=== PATIENT | male | born 1985 | race Caucasian/White ===

== ENCOUNTER 2020-05-07 07:40 | Day surgery (SDC) | payer BC ==
[~2020-05-07 07:40] MED LIST: EPINEPHrine 1 MG/ML SDV SCH; Lactated Ringers 1,000 ML IV SCH; Lidocaine 1%/Sod Bicarbonate in NS 8.4% 1 ML Syringe IDERM PRN; Sodium Chloride 0.9% 10 ML Syringe FLUSH PRN
--- NOTE | 2020-05-07 07:47 | PCM.PREANE ---
Preanesthetic Assessment - Procedure Proposed Procedure: Left knee video arthroplasty with Chrondoplasty of patella - Anesthesia/Transfusion/Family Hx Anesthesia History: Prior Anesthesia Without Reaction Family History of Anesthesia Reaction: No Transfusion History: No Prior Transfusion(s) - Review of Systems General: No Symptoms Pulmonary: No Symptoms Cardiovascular: No Symptoms Gastrointestinal: No Symptoms Neurological: No Symptoms Other: Reports: Diabetes (check this am 164) - Physical Assessment NPO Status Date: 05/06/20 NPO Status Time: 21:45 Height: 1.83 m Weight: 97.3 kg ASA Class: 2 Mental Status: Alert & Oriented x3 Airway Class: Mallampati = 1 Dentition: Reports: Caries Thyro-Mental Finger Breadths: 3 Mouth Opening Finger Breadths: 3 ROM/Head Extension: Full Lungs: Clear to Auscultation, Normal Respiratory Effort Cardiovascular: Regular Rate, Regular Rhythm - Lab Values: Laboratory Last Values MRSA (PCR) Negative 04/03/20 10:39 - Allergies Allergies/Adverse Reactions: Allergies Allergy/AdvReac Type Severity Reaction Status Date / Time No Known Allergies Allergy Verified 05/06/20 12:22 - Blood Blood Available: No Product(s) Available: None - Anesthesia Plan Pre-Op Medication Ordered: None - Acknowledgements Anesthesia Type Planned: General Anesthesia Pt an Appropriate Candidate for the Planned Anesthesia: Yes Alternatives and Risks of Anesthesia Discussed w Pt/Guardian: Yes Pt/Guardian Understands and Agrees with Anesthesia Plan: Yes PreAnesthesia Questionnaire HEENT History: Reports: Impaired Vision, Other (See Below) Other HEENT History: wears glasses Cardiovascular History: Reports: Hypertension Respiratory History: Reports: Other (See Below) Other Respiratory History: snoring Gastrointestinal History: Reports: Other (See Below) Other Gastrointestinal History: dyspepsia Genitourinary History: Reports: None 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 Musculoskeletal History: Reports: Other (See Below) Other Musculoskeletal History: left wrist injury Neurological History: Reports: None Psychiatric History: Reports: Depression Endocrine/Metabolic History: Reports: Diabetes, Type II Hematologic History: Reports: None Immunologic History: Reports: None Oncologic (Cancer) History: Reports: None Dermatologic History: Reports: None - Infectious Disease History Infectious Disease History: Reports: None - Past Surgical History Head Surgeries/Procedures: Reports: None Cardiovascular Surgical History: Reports: None Respiratory Surgical History: Reports: None GI Surgical History: Reports: None Female Surgical History: Reports: None Male Surgical History: Reports: None Endocrine Surgical History: Reports: None Neurological Surgical History: Reports: None Musculoskeletal Surgical History: Reports: Other (See Below) Other Musculoskeletal Surgeries/Procedures:: left wrist surgery Oncologic Surgical History: Reports: None - SUBSTANCE USE Tobacco Use Status *Q: Former Tobacco User Recreational Drug Use History: No - HOME MEDS Home Medications: Home Meds Dulaglutide [Trulicity] 1.5 mg SQ Q7D 05/06/20 [History] FLUoxetine HCl [Prozac] 20 mg PO DAILY 05/06/20 [History] Fish Oil/[place]-3 Fatty Acids [Fish Oil 1,000 MG] 1 gm PO DAILY 05/06/20 [History] Insulin Glargine,Hum.Rec.Anlog [Basaglar Kwikpen U-100] 35 units SQ DAILY 05/06/20 [History] Mv-Mn/Iron/Folic Acid/Herb 190 [Vitamin D3 Complete Caplet] 1 tab PO DAILY 05/06/20 [History] Omeprazole Magnesium [Prilosec Otc] 20 mg PO DAILY 05/06/20 [History] lisinopriL [Lisinopril] 10 mg PO DAILY 05/06/20 [History] metFORMIN [Glucophage] 500 mg PO BID 05/06/20 [History] Acetaminophen/HYDROcodone [[place] 325-5 MG] 1 - 2 tab PO Q6H PRN #20 tablet 05/07/20 [Rx] Aspirin [Aspirin EC] 325 mg PO BID #84 tab 05/07/20 [Rx] - CURRENT (IN HOUSE) MEDS Current Meds: Current Medications Epinephrine HCl (Epinephrine 1 Mg/Ml Sdv) 3 mg .XX ONETIME BRIANNA Stop: 05/07/20 18:00 Lactated Ringer's (Ringers, Lactated) 1,000 mls @ 125 mls/hr IV ASDIRECTED BRIANNA Stop: 05/07/20 23:00 Lidocaine/Sodium Bicarbonate (Lidocaine 1%/Sod Bicarbonate In Ns 8.4% 1 Ml Syringe) 0.25 ml IDERM ONETIME PRN PRN Reason: Prior to IV Start Stop: 05/07/20 18:00 Sodium Chloride (Sodium Chloride 0.9% 10 Ml Syringe) 10 ml FLUSH ASDIRECTED PRN PRN Reason: Keep Vein Open Stop: 05/07/20 18:00
[2020-05-07] MEDS ORDERED: Ondansetron 4 MG/2 ML SDV ONE (07:55)
[2020-05-07] MEDS ORDERED: Midazolam 1 MG/ML 2 ML SDV ONE (07:55)
[2020-05-07] MEDS ORDERED: Propofol 200 MG/20 ML SDV ONE (07:55)
[2020-05-07] MEDS ORDERED: fentaNYL 250 MCG/5 ML SDV ONE (07:55)
[2020-05-07] MEDS ORDERED: ceFAZolin 1 GM Vial ONE (07:56)
[2020-05-07] MEDS ORDERED: Lidocaine 1% 4 ML ONE (07:56)
[2020-05-07] MEDS ORDERED: Bupivacaine 0.25% 10 ML SDV ONE (08:02)
[2020-05-07] MEDS ORDERED: Ketorolac 30 MG/ML SDV ONE (08:46)
[2020-05-07] MEDS ORDERED: Lactated Ringers 1,000 ML ONE (08:47)
[2020-05-07] MEDS ORDERED: HYDROmorphone 0.5 MG/0.5 ML Syringe ONE ×2 (08:59)
[2020-05-07] MEDS ORDERED: fentaNYL 100 MCG/2 ML SDV IVPUSH PRN (09:39)
--- NOTE | 2020-05-07 09:39 | PCM.POSTAN ---
POST ANESTHESIA ASSESSMENT - MENTAL STATUS Mental Status: Alert, Oriented - VITAL SIGNS Vital Signs: Last Vital Signs Temp 36.3 C 05/07/20 07:40 Pulse 71 05/07/20 07:40 Resp 16 05/07/20 07:40 BP 120/82 05/07/20 07:40 Pulse Ox 98 05/07/20 07:40 - RESPIRATORY Respiratory Status: Respiratory Rate WNL, Airway Patent, O2 Saturation Stable - CARDIOVASCULAR CV Status: Pulse Rate WNL, Blood Pressure Stable - GASTROINTESTINAL GI Status: No Symptoms - PAIN Pain Score: 0 - POST OP HYDRATION Hydration Status: Adequate & Stable - OBSERVATIONS Free Text/Narrative:: no anesthesia complications noted
--- NOTE | 2020-05-07 10:54 | PCM48HPAN ---
Post Anesthesia Note - EVALUATION WITHIN 48HRS OF ANESTHETIC Vital Signs in Normal Range: Yes Patient Participated in Evaluation: Yes Respiratory Function Stable: Yes Airway Patent: Yes Cardiovascular Function Stable: Yes Hydration Status Stable: Yes Pain Control Satisfactory: Yes Nausea and Vomiting Control Satisfactory: Yes Mental Status Recovered: Yes Vital Signs: Last Vital Signs Temp 36.3 C 05/07/20 09:47 Pulse 65 05/07/20 10:30 Resp 15 05/07/20 10:30 BP 108/66 05/07/20 10:30 Pulse Ox 93 L 05/07/20 10:30 - COMMENTS/OBSERVATIONS Free Text/Narrative:: no anesthesia complications noted
--- NOTE | 2020-05-18 07:25 | PCM.OPNOTE ---
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
--- NOTE | 2020-05-18 08:09 | OR ---
DATE OF OPERATION: 05/07/2020 SURGEON: Jimmy Franco MD OPERATION PERFORMED: Left knee video arthroscopy, patellar chondroplasty, and partial synovectomy. PREOPERATIVE DIAGNOSIS: Left knee patellar chondromalacia. 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 ANESTHESIA: General LMA with local. ANESTHESIA PROVIDER: Calin Lopez CRNA. PODODERMATOLOGIST: Rupa Ballesteros PA-C. ESTIMATED BLOOD LOSS: 5 mL. COMPLICATIONS: None. CONDITION: Stable. DESCRIPTION OF PROCEDURE: The patient was identified in the preoperative preop holding area. The proper site was marked and identified by the surgeon. The patient was taken back up the operating theater. After adequate anesthesia, the patient's right lower extremity was placed in a well leg shah. The left lower extremity had a nonsterile tourniquet applied. It was then placed in a C-clamp shah. Foot of the bed was then lowered. Left lower extremity was sterilely prepped and draped in the usual sterile fashion. OR time-out was performed. The patient received 2 g IV Ancef. The left lower extremity was exsanguinated. Tourniquet was insufflated to 250 mmHg. A standard anterior lateral portal incision was made. The scope trocar was introduced. The patient actually was noted to have very little patellar chondromalacia, just a small amount on the medial facet on the very far medial side. The patient was noted to have significant synovitis as well as a tight band on the medial side on the suprapatellar region as well as in the medial gutter causing tension on the patella. At this time, attention was turned to the medial compartment. Anteromedial portal was created with the use of a spinal needle. The patient was noted to have no chondromalacia. The medial compartment meniscus was intact. The ACL was found to be significantly laxed with significant redundancy under direct visualization. The lateral compartment showed no signs of meniscal tear, but did show signs indicative of possible old ACL injury with a small amount of chondromalacia on the posterior lateral aspect of the lateral tibial plateau. At this time, attention was turned to the chondromalacia of the patella. A partial chondroplasty of the medial facet of the patella was undertaken at this time. Also a partial synovectomy of the tight band on the medial side was undertaken as well. Excess saline was drained from the knee. 3-0 nylon suture was used for closure skin. The patient was placed in a sterile soft dressing and sent to the PACU in stable condition. MMISRAEL /[id number]
== END 2020-05-07 11:39 | disposition home or self-care (01) ==
LOC: JD.SDS 07:40
PROVIDERS: ATTEND Orthopaedic Surgery
DX: M76.52 Patellar tendinitis, left knee (principal); M22.42 Chondromalacia patellae, left knee; M23.8X2 Other internal derangements of left knee; M65.9 Synovitis and tenosynovitis, unspecified; E11.9 Type 2 diabetes mellitus without complications; I10 Essential (primary) hypertension; Z79.899 Other long term (current) drug therapy; Z79.4 Long term (current) use of insulin; Z98.890 Other specified postprocedural states; Z87.891 Personal history of nicotine dependence
CPT/HCPCS: 29877; 82962; 87641; J0171; J0690; J1170; J1885; J2250; J2405; J2704; J3010; J3490; J7120; 01400

== ENCOUNTER 2020-07-09 06:41 | Day surgery (SDC) | payer BC ==
--- NOTE | 2020-07-08 11:57 | PCM.SN.2 ---
- Free Text/Narrative Note: Left selective femoral nerve block at the adductor canal for post-procedure pain control under US guidance requested by Dr. Franco. Time Out: 724 Start: 724 End: 733 Chart reviewed. Consent signed. Questions answered. Appropriate monitors applied. Time out performed. Left mid-shaft femur identified with ultrasound, scanning medially of femur, the femoral artery in the adductor canal visualized, and the femoral nerve located laterally to the artery. The skin was prepped lateral to the ultrasound probe with chlorahexadine times two. The 21ga 4 insulated block needle was inserted under direct ultrasound guidance into the adductor canal. 20 mL's of 0.5% ropivacaine with 1:200,000 epinephrine was injected circumferentially around the nerve with intermittent negative aspiration noted. Patient tolerated the procedure well. Sterile technique noted along with sterile gloves, mask, and sterile probe cover. See picture on progress note and vital signs on nurses notes. Block completed in PACU. Thank you, Alejandrina Aguilar CRNA
--- NOTE | 2020-07-08 13:35 | PCM.PREANE ---
Preanesthetic Assessment - Procedure Proposed Procedure: Left KVA with ACL Reconstruction with allograft - Anesthesia/Transfusion/Family Hx Anesthesia History: Prior Anesthesia Without Reaction Family History of Anesthesia Reaction: No Transfusion History: No Prior Transfusion(s) Intubation History: Unknown - Review of Systems General: No Symptoms Pulmonary: No Symptoms (Patient snores: denies ALEX) Cardiovascular: No Symptoms (HTN) Gastrointestinal: No Symptoms (GERD-controlled) Neurological: No Symptoms Other: Reports: None, Diabetes (AM blood sugar=), Depression - Physical Assessment NPO Status Date: 07/08/20 NPO Status Time: 20:48 Vital Signs: HR: 74 Sat: 98% Temp: 97.8 B/P: 118/86 Resp: 16 Height: 1.84 m Weight: 100 kg ASA Class: 2 Mental Status: Alert & Oriented x3 Airway Class: Mallampati = 2 Dentition: Reports: Normal Dentition, Caries Thyro-Mental Finger Breadths: 3 Mouth Opening Finger Breadths: 3 ROM/Head Extension: Full Lungs: Clear to Auscultation, Normal Respiratory Effort Cardiovascular: Regular Rate, Regular Rhythm, No Murmurs - Lab Values: All labs reviewed and noted and within acceptable ranges to proceed with scheduled procedure. - Allergies Allergies/Adverse Reactions: Allergies Allergy/AdvReac Type Severity Reaction Status Date / Time No Known Allergies Allergy Verified 05/07/20 08:11 - Anesthesia Plan Pre-Op Medication Ordered: None - Acknowledgements Anesthesia Type Planned: General Anesthesia (With left adductor canal block under US guidance for post operative pain control requested by Dr. Franco.), Spinal Pt an Appropriate Candidate for the Planned Anesthesia: Yes Alternatives and Risks of Anesthesia Discussed w Pt/Guardian: Yes Pt/Guardian Understands and Agrees with Anesthesia Plan: Yes PreAnesthesia Questionnaire HEENT History: Reports: Impaired Vision, Other (See Below) Other HEENT History: wears glasses Cardiovascular History: Reports: Hypertension Respiratory History: Reports: Other (See Below) Other Respiratory History: snoring Gastrointestinal History: Reports: Other (See Below) Other Gastrointestinal History: dyspepsia Genitourinary History: Reports: None INFANT NANNY History: Reports: None Musculoskeletal History: Reports: Other (See Below) Other Musculoskeletal History: left wrist injury Neurological History: Reports: None Psychiatric History: Reports: Depression Endocrine/Metabolic History: Reports: Diabetes, Type II Hematologic History: Reports: None Immunologic History: Reports: None Oncologic (Cancer) History: Reports: None Dermatologic History: Reports: None - Infectious Disease History Infectious Disease History: Reports: None - Past Surgical History Head Surgeries/Procedures: Reports: None Cardiovascular Surgical History: Reports: None Respiratory Surgical History: Reports: None GI Surgical History: Reports: None Female Surgical History: Reports: None Male Surgical History: Reports: None Endocrine Surgical History: Reports: None Neurological Surgical History: Reports: None Musculoskeletal Surgical History: Reports: Other (See Below) Other Musculoskeletal Surgeries/Procedures:: left wrist surgery Oncologic Surgical History: Reports: None - HOME MEDS Home Medications: Home Meds Dulaglutide [Trulicity] 1.5 mg SQ Q7D 05/06/20 [History] FLUoxetine HCl [Prozac] 20 mg PO DAILY 05/06/20 [History] Fish Oil/[place]-3 Fatty Acids [Fish Oil 1,000 MG] 1 gm PO DAILY 05/06/20 [History] Insulin Glargine,Hum.Rec.Anlog [Basaglar Kwikpen U-100] 35 units SQ DAILY 05/06/20 [History] Mv-Mn/Iron/Folic Acid/Herb 190 [Vitamin D3 Complete Caplet] 1 tab PO DAILY 05/06/20 [History] Omeprazole Magnesium [Prilosec Otc] 20 mg PO DAILY 05/06/20 [History] lisinopriL [Lisinopril] 10 mg PO DAILY 05/06/20 [History] metFORMIN [Glucophage] 500 mg PO BID 05/06/20 [History] Aspirin [Aspirin EC] 325 mg PO BID #84 tab 05/07/20 [Rx] Aspirin [Aspirin EC] 325 mg PO BID #84 tab 07/09/20 [Rx] Cyclobenzaprine [Flexeril] 10 mg PO BID PRN #20 tab 07/09/20 [Rx] - CURRENT (IN HOUSE) MEDS Current Meds: Current Medications Lactated Ringer's (Ringers, Lactated) 1,000 mls @ 125 mls/hr IV ASDIRECTED BRIANNA Stop: 07/09/20 23:00 Lidocaine/Sodium Bicarbonate (Lidocaine 1%/Sod Bicarbonate In Ns 8.4% 1 Ml Syringe) 0.25 ml IDERM ONETIME PRN PRN Reason: Prior to IV Start Stop: 07/09/20 18:00 Sodium Chloride (Sodium Chloride 0.9% 10 Ml Syringe) 10 ml FLUSH ASDIRECTED PRN PRN Reason: Keep Vein Open Stop: 07/09/20 18:00
[~2020-07-09 06:41] MED LIST changes: +EPINEPHrine 1 MG/ML SDV ONE; -EPINEPHrine 1 MG/ML SDV SCH; -Lactated Ringers 1,000 ML IV SCH; -Lidocaine 1%/Sod Bicarbonate in NS 8.4% 1 ML Syringe IDERM PRN; +Ropivacaine 0.5% 5 MG/ML 30 ML SDV ONE; -Sodium Chloride 0.9% 10 ML Syringe FLUSH PRN
[2020-07-09] MEDS ORDERED: Sodium Chloride 0.9% 10 ML Syringe FLUSH PRN (07:00)
[2020-07-09] MEDS ORDERED: Lactated Ringers 1,000 ML IV SCH (07:00)
[2020-07-09] MEDS ORDERED: Lidocaine 1%/Sod Bicarbonate in NS 8.4% 1 ML Syringe IDERM PRN (07:00)
[2020-07-09] MEDS ORDERED: EPINEPHrine 1 MG/ML 30 ML MDV IRR SCH (07:00)
[2020-07-09] MEDS ORDERED: Propofol 200 MG/20 ML SDV ONE (08:18)
[2020-07-09] MEDS ORDERED: Lidocaine 1% 4 ML ONE (08:18)
[2020-07-09] MEDS ORDERED: fentaNYL 100 MCG/2 ML SDV ONE (08:18)
[2020-07-09] MEDS ORDERED: Midazolam 1 MG/ML 2 ML SDV ONE (08:18)
[2020-07-09] MEDS ORDERED: fentaNYL 250 MCG/5 ML SDV ONE (08:18)
[2020-07-09] MEDS ORDERED: ceFAZolin 1 GM Vial ONE (08:33)
[2020-07-09] MEDS ORDERED: Ketorolac 30 MG/ML SDV ONE (08:34)
[2020-07-09] MEDS ORDERED: Ondansetron 4 MG/2 ML SDV ONE (08:34)
[2020-07-09] MEDS ORDERED: Dexamethasone 4 MG/ML 5 ML MDV ONE (08:34)
[2020-07-09] MEDS ORDERED: Bupivacaine 0.25% 10 ML SDV ONE (08:56)
[2020-07-09] MEDS ORDERED: Ketamine 500 mg/10 ML MDV ONE (09:00)
[2020-07-09] MEDS ORDERED: fentaNYL 100 MCG/2 ML SDV IVPUSH PRN (09:39)
[2020-07-09] MEDS ORDERED: Ondansetron 4 MG/2 ML SDV IVPUSH PRN (09:39)
[2020-07-09] MEDS ORDERED: Lactated Ringers 1,000 ML ONE (09:51)
--- NOTE | 2020-07-09 10:04 | CR ---
Left knee: 2 views of left knee were obtained. Study was obtained utilizing C-arm device. Comparison: No prior knee study is available. Surgical change is seen compatible with recent ACL repair. Joint spaces are preserved. No acute osseous abnormality is otherwise seen. Fluoroscopy time is given as 1.9 seconds. Impression: 1. Postoperative change of prior ACL repair. 2. No other acute abnormality is appreciated on this fluoroscopic study. Diagnostic code #2
--- NOTE | 2020-07-09 10:15 | PCM.POSTAN ---
POST ANESTHESIA ASSESSMENT - MENTAL STATUS Mental Status: Alert - VITAL SIGNS Vital Signs: Last Vital Signs Temp 36.6 C 07/09/20 10:07 Pulse 94 07/09/20 10:07 Resp 12 07/09/20 10:07 BP 111/78 07/09/20 10:07 Pulse Ox 100 07/09/20 10:07 - RESPIRATORY Respiratory Status: Respiratory Rate WNL, Airway Patent, O2 Saturation Stable - CARDIOVASCULAR CV Status: Pulse Rate WNL, Blood Pressure Stable - GASTROINTESTINAL GI Status: No Symptoms - PAIN Pain Score: 0 - POST OP HYDRATION Hydration Status: Adequate & Stable
[2020-07-09] MEDS ORDERED: Acetaminophen/HYDROcodone 325-5 MG Tab PO PRN (10:42)
--- NOTE | 2020-07-09 11:10 | PCM48HPAN ---
Post Anesthesia Note - EVALUATION WITHIN 48HRS OF ANESTHETIC Vital Signs in Normal Range: Yes Patient Participated in Evaluation: Yes Respiratory Function Stable: Yes Airway Patent: Yes Cardiovascular Function Stable: Yes Hydration Status Stable: Yes Pain Control Satisfactory: Yes Nausea and Vomiting Control Satisfactory: Yes Mental Status Recovered: Yes Vital Signs: Last Vital Signs Temp 98.4 C H 07/09/20 10:45 Pulse 80 07/09/20 10:45 Resp 12 07/09/20 10:45 BP 126/64 07/09/20 10:45 Pulse Ox 99 07/09/20 10:45
[2020-07-09] MEDS ORDERED: Cyclobenzaprine 10 MG Tab PO ONE (11:30)
--- NOTE | 2020-07-09 11:30 | PCM.OPNOTE ---
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
--- NOTE | 2020-07-09 11:59 | OR ---
DATE OF OPERATION: 07/09/2020 SURGEON: Jimmy Franco MD OPERATION PERFORMED: Left knee anterior cruciate ligament reconstruction with allograft. PREOPERATIVE DIAGNOSIS: Left knee anterior cruciate ligament deficiency. POSTOPERATIVE DIAGNOSIS: Left knee anterior cruciate ligament deficiency. ANESTHESIA: General LMA with regional femoral block. ANESTHESIA PROVIDER: Keri Ramires. GRANITE FABRICATOR: Rupa Ballesteros PA-C and Angelita Freire LPN. ESTIMATED BLOOD LOSS: 5 mL. COMPLICATIONS: None. CONDITION: Stable. DESCRIPTION OF PROCEDURE: The patient was identified in the preoperative holding area. Proper site was marked and identified by the surgeon. The patient was taken back to the operative theater, where after adequate anesthesia, the patient's right lower extremity was placed in a well leg shah. Left lower extremity had a nonsterile tourniquet applied. This was then placed in a C-clamp shah. Foot of the bed was then lowered. Left lower extremity was then sterilely prepped and draped in the usual sterile fashion. OR time-out was performed. The patient received 2 g IV Ancef. Left lower extremity was exsanguinated. Tourniquet was insufflated to 250 mmHg. Standard anterolateral portal incision was made next to the patellar tendon. Scope trocar was introduced. The patient was noted to have minimal to no chondromalacia on patellofemoral, medial and lateral joint lines, as well as no meniscal tears. Anteromedial portal was then created. All fibers of the ACL were identified and were torn off the femoral side. These were debrided back. The graft was opened on the back table and was prepared by Rupa Ballesteros PA-C, and Angelita Freire LPN to a length of roughly 70 to 75 mm. While this was being done, once the old fibers were taken down, the tibial guide was placed at 55 degrees. Guide pin was placed roughly 3 mm anterior to the PCL and a 9 mm reamer was then utilized for a 9 mm tibial tunnel. It was found to be in anatomic position. At this time, the flip cutter was set to 105, was placed posteriorly for a 9 mm. It was placed posteriorly with roughly 3 mm cortex both on the distal portion and posterior cortex of the lateral femoral condyle. Flip cutter was then reamed back to a 25 mm tunnel. Excess bone was taken out of the knee. Graft was then shuttled up through the tibial tunnel into the femoral tunnel. Endobutton was flipped. C-arm fluoroscopy showed that it was flipped on the femoral side with no soft tissue interference. Graft was then brought up through the femoral tunnel. It was found to be in adequate position. Tension was applied. The patient's knee was brought through cycled range of motion, flexion and extension 25 times. Tension was held on the graft. A 4.5 [place] screw was then placed in the tibia for a post with a washer. The tibial sutures were then tied over this and this was then tightened. The patient had negative anterior drawer under direct visualization and the graft was found to be in proper position. At this time, adequate saline was irrigated through the wounds. 2-0 Vicryl as well as Monocryl was then used for closure of the incisions. The patient was placed in a sterile soft dressing and a hinged knee brace and was sent to the PACU in stable condition. REG /[id number]
== END 2020-07-09 13:37 | disposition home or self-care (01) ==
LOC: JD.SDS 06:41
PROVIDERS: ATTEND Orthopaedic Surgery
DX: S83.512A Sprain of anterior cruciate ligament of left knee, initial encounter (principal); M23.8X2 Other internal derangements of left knee; E11.9 Type 2 diabetes mellitus without complications; I10 Essential (primary) hypertension; Z79.82 Long term (current) use of aspirin; Z79.4 Long term (current) use of insulin; Z79.899 Other long term (current) drug therapy
CPT/HCPCS: 29888; 76000; 82947; A9270; C1713; C1762; J0171; J0690; J1100; J1885; J2250; J2405; J2704; J2795; J3010; J7120; 01400; 64450; 76942; J3490